=== PATIENT | female | born 1970 | race Caucasian/White ===

== ENCOUNTER → 2018-03-24 | Outpatient (CLI) | payer OTHER ==
[~2018-03-24] VITALS: Ht 162.6 cm; Wt 108.7 kg
[~2018-03-24] MED LIST: ANTIVERT25 MG PO; ATIVAN0.5 MG PO; ATROVENT IH; AZITHROMYCIN 2250 MG; BACTRIM DS TAB1 EACH PO; BENTYL 10 MG CA10 MG PO; BENTYL10 MG PO; CAMILA0.35 MG PO; CARAFATE 11 GM/10 M1 GT; CEPHALEXIN 250250 M1 PO; CLONAZEPAM; CLONAZEPAM 0.50.5 M1 PO; CLONAZEPAM 1 MG1 M1 PO; CLONAZEPAM PO; CYCLAFEM1 EAC1 PO; CYMBALTA; CYMBALTA PO; DEPAKOTE; DEPAKOTE500 MG PO; ERRIN0.35 MG PO; FENTANYL PA25 MCG/HR TP; FENTANYL PA50 MCG/HR TP; FENTANYL PATCH75 MCG TP; FLEXERIL PO; FROVA2.5 MG PO; LEVOTHYROXIN0.075 MG PO; LEVOXYL25 MCG PO; MECLIZINE 25 MG25 M1 PO; METHADONE HCL 110 M1 PO; METHADONE HCL 110 MG PO; METHADONE HCL5 MG PO; METHADONE10 MG/1 M2 PO; MOBIC7.5 MG PO; NEXIUM40 MG PO; NORTREL1 EAC1 PO; OXYCODONE HCL 55 MG PO; OXYCODONE HCL5 M1 PO; PHENERGAN 25 MG25 M1 PO; PROTONIX40 M2 PO; ROXICODONE5 M1 PO; ROXICODONE5 M2 PO; TOPAMAX 100 MG100 MG PO; XOPENEX 0.63 MG/3 M1 IH
--- NOTE | ~2018-03-24 | HPC ---
[facility] [place] [address] PAIN MANAGEMENT CONSULTATION Name: ANYI ANDERSON Room #: REG [facility].#: [id number] Admission: 03/24/18 Attend Phys: Karlo Celaya MD Discharge: Date of : 74 Report #: [id number] THIS REPORT FOR: //name// CC: Vijay Celaya DATE OF SERVICE: 03/24/2018 I have been seeing the patient since we put in a spinal cord stimulator in 2014. She has been one of my most successful stimulator patients. She previously was seen on a regular basis for epidural injections for lumbar radiculopathy, which is nearly gone now with her spinal cord stimulation performed in April. She is here today complaining that she has new pain across her low back. It is worse with prolonged sitting, is actually improved with weightbearing. It does on occasion radiate into her right leg with modest radicular symptoms, but far better than that she had years ago prior to her stimulator. She uses her stimulator with great regularity, charges this appropriately. All medications were reviewed and reconciled. She is on no medication for pain at this time. PHYSICAL EXAMINATION: She is a 47-year-old mentally challenged female, pleasant, but alert and oriented x 3. She is able to move from sitting to standing position, but walks with a spastic gait. Her blood pressure is 120/66, heart rate 123, respirations 16. Her BMI is 41. Examination of the spine reveals pain with forward flexion and extension, both consistent with spondylosis. She has straight leg raising pain, more positive on the right than the left. 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 IMPRESSION: Low back pain with spondylosis. RECOMMENDATIONS: 1. She was instructed to try exercise and she was given exercises to do in the clinic. 2. She was given a prescription for meloxicam 7.5 mg to take once twice a day or 2 tablets in the morning. 3. Follow up in the pain clinic in a couple of weeks. If she is not better, I would recommend an epidural injection at L5-S1. By: [id number] Karlo Celaya MD /nt
[2018-03-24 13:10] VITALS: BP 120/66
== END ==
LOC: PAIN 06:13
DX: M47.26 Other spondylosis with radiculopathy, lumbar region (principal); Z79.899 Other long term (current) drug therapy

== ENCOUNTER → 2018-06-27 | Outpatient (CLI) | payer OTHER ==
[~2018-06-27] VITALS: Ht 162.6 cm; Wt 107.2 kg
--- NOTE | ~2018-06-27 | HPC ---
[facility] [place] [address] PAIN MANAGEMENT CONSULTATION Name: ANYI ANDERSON Room #: REG [facility].#: [id number] Admission: 06/27/18 Attend Phys: Karlo Celaya MD Discharge: Date of : 74 Report #: [id number] THIS REPORT FOR: //name// CC: Vijay Celaya DATE OF SERVICE: 06/27/2018 CHIEF COMPLAINT: Lumbar radiculopathy. HISTORY OF PRESENT ILLNESS: The patient returns to the pain clinic today complaining of severe lumbar radiculopathy. Pain follows an L5-S1 distribution. In the past, she has previously responded extremely well to transforaminal injections. In 2014, we placed a spinal cord stimulator and for the last nearly 2.5 years, she has not required an epidural injection. She has recently flared upper back. She describes her pain as severe, 8/10 and it follows the L5-S1 distribution once again on the right. PQRS: Shows that she has no history of arthritis. She is developmentally delayed. She is 47 years old with a BMI of 40.6. Weight loss has been discussed with the goal of maintaining better health in controlling pain. Her blood pressure is 133/75, heart rate 123 and O2 sat 93. Pain intensity is 8/10. She has not fallen. She is on no blood thinners. She has no history of hypertension and takes no opioids. She denies use of tobacco and alcohol. PHYSICAL EXAMINATION: Further physical exam reveals an antalgic gait with spasticity. Positive straight leg raising on the right following an L5-S1 distribution, decreased sensation. IMPRESSION: 1. Chronic low back pain with radiculopathy and spondylosis. 2. Failure of spinal cord stimulator. PLAN: We are hopeful renewing her radicular epidural injection and we will help reset the benefit from the spinal cord stimulator, single injection was recommended. Potential risks and benefits discussed. PROCEDURE: She was taken to fluoroscopic suite, placed prone, skin prepped with ChloraPrep. Skin anesthetized to the right of midline. A 22-gauge non-coring needle advanced into the epidural space using triplanar fluoroscopic views. There was no blood or CSF aspirated. A milliliter of Omnipaque injected with good spread of dye observed into the epidural space followed by 3 mL of 0.5% [address] [address] PAIN MANAGEMENT CONSULTATION Name: ANYI ANDERSON Jeff Room #: REG [facility] Bernal#: [id number] Admission: 06/27/18 Attend Phys: Karlo Celaya MD Discharge: Date of : 74 Report #: [id number] lidocaine mixed with 80 mg of triamcinolone. He tolerated the procedure well. Pain was 0 at discharge. There were no complications. By: [id number] Karlo Celaya MD /nt
[2018-06-27 12:56] VITALS: BP 133/75
== END | disposition home or self-care (01) ==
LOC: PAIN 07:15
DX: M54.16 Radiculopathy, lumbar region (principal); G89.29 Other chronic pain; M47.816 Spondylosis without myelopathy or radiculopathy, lumbar region; Z98.890 Other specified postprocedural states; Z88.8 Allergy status to other drugs, medicaments and biological substances; Z79.899 Other long term (current) drug therapy

== ENCOUNTER → 2018-07-25 | Outpatient (CLI) | payer OTHER ==
[~2018-07-25] VITALS: Ht 162.6 cm; Wt 107.0 kg
[~2018-07-25] MED LIST changes: +CEFDINIR300 MG PO; +ENDOCET 5-3251 EACH PO
--- NOTE | ~2018-07-25 | HPC ---
[facility] [address] [place] [address] PAIN MANAGEMENT CONSULTATION Name: ANYI ANDERSON Jeff Room #: REG [facility] Bernal#: [id number] Admission: 07/25/18 Attend Phys: Karlo Celaya MD Discharge: Date of : 74 Report #: [id number] THIS REPORT FOR: //name// CC: Vijay Celaya DATE OF SERVICE: 07/25/2018 Followup visit for recurring left L5-S1 radiculopathy. The patient is here today for another transforaminal epidural injection. She had excellent relief after her last injection for 3 weeks, but the pain has returned and is now back to baseline. She has a spinal cord stimulator and I have encouraged her to discuss with [employer] again yet another adjustment. She is having some charging irregularities that were not present several months ago. Her mother says that when she charges it for the first 24-48 hours after charging she has to turn it down. It seems as though it is providing irregular pattern of stimulation and I am concerned that perhaps the batteries are not functioning as they properly should. She did so well with the stimulator after we placed it 3 years ago that I did not even see her at all for pain treatments up until this year. Today, the pain is fairly unbearable. She has an upcoming holiday with family coming down. I have agreed to provide her with another epidural injection. She has had a recent upper respiratory tract infection and began last week on antibiotic. She has been on antibiotics for 4 days and her symptoms have resolved. She is afebrile today. PHYSICAL EXAMINATION: Morbidly obese, pleasant female who has cerebral palsy and spasticity. She moves from sitting to standing position and walks with antalgic features. Her gait is spastic. She has pain across her low back with forward flexion and extension. She has straight leg raising pain identified on the right that follows clearly an L5-S1 distribution. Sensation is intact. There is no swelling in the lower extremities. IMPRESSION: Chronic low back pain with radiculopathy. PLAN: 1. Contact Boxed for reassessment of battery and readjustment. 2. Epidural steroid injection under fluoroscopic guidance, transforaminal approach, L5-S1. PROCEDURE: She was taken to the fluoroscopic suite, placed prone, skin prepped [address] [address] PAIN MANAGEMENT CONSULTATION Name: ANYI ANDERSON Jeff Room #: REG [facility].#: [id number] Admission: 07/25/18 Attend Phys: Karlo Celaya MD Discharge: Date of : 74 Report #: [id number] with ChloraPrep. Skin was anesthetized over the L5-S1 neural foramen. Using triplanar fluoroscopic views, I advanced needle quickly and easily into the epidural space. There was no blood or CSF aspirated. 1 mL of Omnipaque injected demonstrating an excellent epidurogram. It was then followed by 3 mL of 1% lidocaine mixed with 80 mg of triamcinolone. She tolerated the procedure well and was observed in recovery room for a short time. There was some numbness to her leg, but it resolved and she was able to be discharged on her own accord with her family members. Followup visit planned in 2-3 months. By: [id number] Karlo Celaya MD /nt
[2018-07-25 15:04] VITALS: BP 113/78
== END | disposition home or self-care (01) ==
LOC: PAIN 08:25
DX: M54.16 Radiculopathy, lumbar region (principal); G89.29 Other chronic pain; Z98.890 Other specified postprocedural states; Z88.8 Allergy status to other drugs, medicaments and biological substances; Z79.899 Other long term (current) drug therapy

== ENCOUNTER → 2018-11-07 | Outpatient (CLI) | payer OTHER ==
[~2018-11-07] VITALS: Ht 162.6 cm; Wt 108.9 kg
--- NOTE | ~2018-11-07 | HPC ---
[facility] [address] [place] [address] PAIN MANAGEMENT CONSULTATION Name: ANYI ANDERSON Room #: REG [facility] Dharmesh.#: [id number] Admission: 11/07/18 ������������������ Attend Phys: Karlo Celaya MD Discharge: ������������������ Date of : 74 Report #: [id number] THIS REPORT FOR: //name// CC: Bay Celaya DATE OF SERVICE: 11/07/2018 CHIEF COMPLAINT: Followup visit for recurrent right L5-S1 radiculopathy with shooting pain down the posterior lateral aspect of the leg. HISTORY OF PRESENT ILLNESS: The patient is here today in followup requesting a transforaminal epidural injection. We had extended period of time following the placement of her spinal cord stimulator when these injections were not necessary. I had been providing them for her about every 3 months for a number of years until the stimulator changed all of that. I am disappointed to say that she is no longer receiving the same benefit that she had earlier from her stimulator despite some readjustments. I performed a transforaminal for her last in July and this will be her third injection since 06/27/2018. Prior to that time, her last transforaminal injection was 2014, so it was in fact about 3-1/2 years of good relief from the spinal cord stimulator. 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 Her mother helps her toggle between the programs. She has been using some meloxicam to help with arthritis of the hands, but no other oral pain medications have been provided. PQRS review shows a 47-year-old developmentally delayed female without history of osteoarthritis, morbid obesity with a BMI of 41.2 and pain intensity of 8/10. She has some instability in her gait, but has not fallen within the last months and is not considered a fall risk. She is on no blood thinners and is not treated for hypertension. She does not use opioid medication, but has completed an opioid risk tool and is considered at low risk. PHYSICAL EXAMINATION: GENERAL: She is pleasant, provides a thorough history. VITAL SIGNS: Her blood pressure 104/83, heart rate is 133 with respirations of 22, O2 sat 97%. These are not atypical numbers for her with a history of chronic tachycardia. She is 5 feet 4 inches, 240 pounds, BMI of 41.2. MUSCULOSKELETAL: She moves and stands independently, but walks with a spastic [facility] [address] [place] [address] PAIN MANAGEMENT CONSULTATION Name: ANYI ANDERSON Room #: REG [facility].#: [id number] Admission: 11/07/18 ������������������ Attend Phys: Karlo Celaya MD Discharge: ������������������ Date of : 74 Report #: [id number] gait. She has pain across her low back and limited range of motion in flexion, extension and rotation. She has positive straight leg raising, reproduces pain down the L5 distribution into the right leg. IMPRESSION: 1. Lumbar radiculopathy, chronic and recurrent. 2. Failure of spinal cord stimulation therapy. 3. Hypothyroidism. 4. History of chronic depression and anxiety. 5. Cerebral palsy with dystonia hemiparesis. PROCEDURE PERFORMED: Right L5-S1 transforaminal epidural injection. PROCEDURE: The patient was taken to fluoroscopic suite for procedure. After informed consent, placed prone, skin prepped with ChloraPrep. Skin was anesthetized over the L5-S1 neural foramen. Using triplanar fluoroscopic views, I advanced the needle into the neural foramen. One mL of Omnipaque was injected. Good spread of dye observed in the epidural space followed by 3 mL of 0.5% lidocaine mixed with 80 mg of triamcinolone. She tolerated the procedure well and was observed for 45 minutes and then discharged. Pain was reduced by about 50%. She tolerated the procedure well. There were no complications. ��������������������������������������������� ���������������������������������������� By: ��������������������������������������������� [id number] Karlo Celaya MD /nt
[2018-11-07 14:10] VITALS: BP 104/83
--- NOTE | 2018-11-07 14:19 | NUR ---
Pain Clinic Assessment: 1. History of Osteoarthritis: Not Applicable History of Rheumatoid Arthritis: Not Applicable 2. Height: 5 ft. 4 in. 162.6 cm. Weight: 240.0 lb. oz. 108.864 kg. Patient's BMI: 41.2 3. Vital Signs: BP: 104/83 Pulse: 133 Resp: 22 Temp: 02 Sat: 97 ECG Mon: 4. Pain Intensity: 8 5. Fall Risk: Dizziness: Y Needs help standing or walking: Y Fallen in the last 3 months: N Fall risk comments: 6. Patient on Blood Thinner: None 7. History of Hypertension: N 8. Opioid Therapy greater than 6 weeks: N Opiate Contract Signed: 9. Risk Assessment Tool Provided: low-1 10. Functional Assessment Tool: 64/70 11. Recreational Drug Use: Never Drug Type: Tobacco Use: Never Smoker Tobacco Type: Amount or Packs/day: How Many Years: Alcohol Use: No Frequency: Quant:
== END | disposition home or self-care (01) ==
LOC: PAIN 10-14 07:15
DX: M54.16 Radiculopathy, lumbar region (principal); G89.29 Other chronic pain; G81.90 Hemiplegia, unspecified affecting unspecified side; E03.9 Hypothyroidism, unspecified; E66.01 Morbid (severe) obesity due to excess calories; Z98.890 Other specified postprocedural states; Z86.59 Personal history of other mental and behavioral disorders; Z68.41 Body mass index [BMI] 40.0-44.9, adult; Z88.6 Allergy status to analgesic agent; Z79.899 Other long term (current) drug therapy

== ENCOUNTER → 2018-12-19 | Outpatient (CLI) | payer OTHER ==
[~2018-12-19] VITALS: Ht 162.6 cm; Wt 109.3 kg
--- NOTE | ~2018-12-19 | HPC ---
[facility] [address] [place] [address] PAIN MANAGEMENT CONSULTATION Name: ANYI ANDERSON Room #: REG [facility] Dharmesh.#: [id number] Admission: 12/19/18 ������������������ Attend Phys: Karlo Celaya MD Discharge: ������������������ Date of : 74 Report #: [id number] THIS REPORT FOR: //name// CC: Vijay Celaya DATE OF SERVICE: 12/19/2018 Followup visit for right L5-S1 lumbar radiculopathy. The patient returns to Pain Clinic today for a transforaminal epidural injection. This will be her third injection in 5 months. We discussed the role of the injection in providing pain relief. We did this for a number of years until she had her spinal cord stimulator placed. After that, she did very well and I did not see her for about 2 years. She is now no longer getting relief and we have had her scheduled on 2 occasions to work with [employer] to try and recapture. I am going to ask that they return once again to the clinic and see if they can make additional stimulation adjustments. Today, she reports that her pain is 10/10. She would like to go forward with another epidural injection. PHYSICAL EXAMINATION: She is 5 feet 4 inches, 241 pounds, BMI is 41.3, blood pressure 154/120, heart rate 130. We believe this is related to her pain. That was born out with a reduction in her blood pressure and her heart rate in recovery room after her injection when the pain was much improved. She was able to move from an independent standing position and ambulate with a spastic gait. She has chronic mobility issues related to her cerebral palsy with dystonia and hemiparesis. She has pain across her low back, pain with forward flexion and extension, positive straight leg raising on the right and follows an L5-S1 distribution. IMPRESSION: 1. Chronic low back pain with radiculopathy, L5-S1. 2. Failure of spinal cord stimulation therapy. We will continue to maybe see if we can get that recapture some of the pain relief that was so beneficial early on. 3. Hypothyroidism. 4. Chronic depression and anxiety. 5. Cerebral palsy with dystonia and hemiparesis. PROCEDURE: Right L5-S1 transforaminal epidural injection under fluoroscopic guidance. PROCEDURE: She was taken to fluoroscopic suite. [place] [address] PAIN MANAGEMENT CONSULTATION Name: ANYI ANDERSON Jeff Room #: REG [facility] Bernal#: [id number] Admission: 12/19/18 ������������������ Attend Phys: Karlo Celaya MD Discharge: ������������������ Date of : 74 Report #: [id number] prepped with ChloraPrep. Skin anesthetized over the L5-S1 neural foramen. Using triplanar fluoroscopic views, I advanced the needle on the first attempt in the epidural space. 1 mL of Omnipaque was injected and good spread of dye was seen within the epidural space. This was followed then by 3 mL of 0.5% lidocaine mixed with 80 mg of triamcinolone. She tolerated the procedure well. Pain was 0 on discharge. Follow up as needed. ��������������������������������������������� ���������������������������������������� By: ��������������������������������������������� [id number] Karlo Celaya MD /nt
[2018-12-19 12:38] VITALS: BP 154/120
--- NOTE | 2018-12-19 12:39 | NUR ---
Pain Clinic Assessment: 1. History of Osteoarthritis: Not Applicable History of Rheumatoid Arthritis: Not Applicable 2. Height: 5 ft. 4 in. 162.6 cm. Weight: 241.0 lb. oz. 109.317 kg. Patient's BMI: 41.3 3. Vital Signs: BP: 154/120 Pulse: 130 Resp: 18 Temp: 02 Sat: 95 ECG Mon: 4. Pain Intensity: 8 5. Fall Risk: Dizziness: N Needs help standing or walking: N Fallen in the last 3 months: N Fall risk comments: 6. Patient on Blood Thinner: None 7. History of Hypertension: N 8. Opioid Therapy greater than 6 weeks: N Opiate Contract Signed: 9. Risk Assessment Tool Provided: low-1 10. Functional Assessment Tool: 64/70 11. Recreational Drug Use: Never Drug Type: Tobacco Use: Never Smoker Tobacco Type: Amount or Packs/day: How Many Years: Alcohol Use: No Frequency: Quant:
== END | disposition home or self-care (01) ==
LOC: PAIN 10-21 07:02
DX: M54.16 Radiculopathy, lumbar region (principal); G89.29 Other chronic pain; M54.5 Low back pain; Z98.890 Other specified postprocedural states; E03.9 Hypothyroidism, unspecified; F32.9 Major depressive disorder, single episode, unspecified; F41.9 Anxiety disorder, unspecified; G81.90 Hemiplegia, unspecified affecting unspecified side

== ENCOUNTER → 2019-05-01 | Outpatient (CLI) | payer OTHER ==
[~2019-05-01] VITALS: Ht 162.6 cm; Wt 106.1 kg
[~2019-05-01] MED LIST changes: +LOSARTAN POTASS50 MG PO
--- NOTE | ~2019-05-01 | HPC ---
[facility] [address] [employer] [place] [address] PAIN MANAGEMENT CONSULTATION Name: ANYI ANDERSON Room #: REG [facility] Dolores#: [id number] Admission: 05/01/19 Attend Phys: Karlo Celaya MD Discharge: Date of : 74 Report #: [id number] THIS REPORT FOR: //name// CC: Vijay Celaya DATE OF SERVICE: 05/01/2019 Followup visit for recurrent lumbar radiculopathy, L5-S1 distribution. The patient returns to pain clinic today for right L5-S1 transforaminal epidural injection. She has done beautifully with these injections off and on over the course of several years. The duration of response usually is measured in months. There was a nice interval where the spinal cord stimulator that was placed worked very effectively, but we only saw a response for about 2 years. The stimulator is no longer effective. We had her work with [employer] a number of occasions. She tried to get working once again. She is here today scoring her pain is a 10/10. I would like to go forward with another transforaminal epidural injection on the right. PQRS REVIEW: 1. She denies a history of osteoarthritis. Her pain is primarily neuropathic and into the right leg. 2. BMI is 40.1. 3. Vital signs 106/83, heart rate 114, respirations 16, O2 96. 4. Pain intensity is 9-10/10. 5. She needs help standing and walking, but has not fallen in the last 3 months. I would consider her a fall risk, nonetheless. 6. No blood thinning medications. 7. No history of hypertension or treatment. 8. No opioids at this time. She has not completed an opioid agreement. 9. Low risk is considered by the opioid risk tool that we utilized. 10. Functional assessment score is high at 64/70 which indicates poor daily functioning due to pain. 11. She denies use of tobacco and alcohol. PHYSICAL EXAMINATION: GENERAL: She is a pleasant 48-year-old with a history of cerebral palsy, right hemiplegia due to dystonia. She is a somewhat anxious and nervous regarding procedure as usual. She moves from sitting to standing position independently, walks with markedly hemiplegic dystonic gait. Spasticity is noted on the right. CHEST: Clear. CARDIAC: Rhythm is regular. [address] [address] PAIN MANAGEMENT CONSULTATION Name: ANYI ANDERSON Jeff Room #: REG [facility].#: [id number] Admission: 05/01/19 Attend Phys: Karlo Celaya MD Discharge: Date of : 74 Report #: [id number] ABDOMEN: Soft, no organomegaly. MUSCULOSKELETAL: Examination of the spine reveals tenderness and a marked positive straight leg raising on the right, reproducing pain in the L5-S1 distribution of the right all the way to the foot. She has weakness or guarding and plantar and dorsiflexion was not performed, I believe more due to pain than to weakness. IMPRESSION: 1. Cerebral palsy with dystonia and hemiparesis. 2. Lumbar radiculopathy, L5-S1 on the right. 3. Hypothyroidism. 4. History of chronic anxiety and depression. RECOMMENDATION: Right L5-S1 transforaminal injection under fluoroscopic guidance. PROCEDURE: After informed consent, she was taken to fluoroscopic suite, placed prone, skin prepped with ChloraPrep. Skin anesthetized over the L5-S1 neural foramen. Using triplanar fluoroscopic views, I advanced the needle into the neural foramen. Definitely, the needle looked excellent. A 0.25 mL of Omnipaque was injected, followed by another 2 mL of Omnipaque. I could not see dye in the AP view. The lateral view indicated that the dye was in the epidural space, but extending in a cephalad direction. It is likely that the depth of the needle was a bit too far, so I withdrew the needle slightly and repositioned in the neural foramen. Repeat epidurogram with 1 mL of Omnipaque demonstrated spread within the dye and into the epidural space. It was then followed by 3 mL of 0.5% lidocaine mixed with 8 mg of Decadron. She tolerated the procedure well. There were no complications. She was observed in recovery room for 45 minutes and discharged. Followup visit is planned on an as needed basis for repeat injections. By: [id number] Karlo Celaya MD /nt
[2019-05-01 14:58] VITALS: BP 106/83
--- NOTE | 2019-05-01 15:13 | NUR ---
Pain Clinic Assessment: 1. History of Osteoarthritis: Not Applicable History of Rheumatoid Arthritis: Not Applicable 2. Height: 5 ft. 4 in. 162.6 cm. Weight: 233.8 lb. oz. 106.051 kg. Patient's BMI: 40.1 3. Vital Signs: BP: 106/83 Pulse: 114 Resp: 16 Temp: 02 Sat: 96 ECG Mon: 4. Pain Intensity: 9.8 5. Fall Risk: Dizziness: Y Needs help standing or walking: Y Fallen in the last 3 months: N Fall risk comments: 6. Patient on Blood Thinner: None 7. History of Hypertension: N 8. Opioid Therapy greater than 6 weeks: N Opiate Contract Signed: 9. Risk Assessment Tool Provided: low-1 10. Functional Assessment Tool: 64/70 11. Recreational Drug Use: Never Drug Type: Tobacco Use: Never Smoker Tobacco Type: Amount or Packs/day: How Many Years: Alcohol Use: No Frequency: Quant:
== END | disposition home or self-care (01) ==
LOC: PAIN 06:56
DX: M54.16 Radiculopathy, lumbar region (principal); G89.29 Other chronic pain; G80.3 Athetoid cerebral palsy; E03.9 Hypothyroidism, unspecified; Z86.59 Personal history of other mental and behavioral disorders; Z88.8 Allergy status to other drugs, medicaments and biological substances; Z79.899 Other long term (current) drug therapy; Z98.890 Other specified postprocedural states

== ENCOUNTER → 2019-05-18 | Outpatient (CLI) | payer OTHER ==
[~2019-05-18] VITALS: Ht 162.6 cm; Wt 107.4 kg
[~2019-05-18] MED LIST changes: +NORCO 5-325 TA1 EAC1 PO
--- NOTE | ~2019-05-18 | HPC ---
[facility] [place] [address] PAIN MANAGEMENT CONSULTATION Name: ANYI ANDERSON Room #: REG [facility].#: [id number] Admission: 05/18/19 ������������������ Attend Phys: Karlo Celaya MD Discharge: ������������������ Date of : 74 Report #: [id number] THIS REPORT FOR: //name// CC: ARPAN Celaya DATE OF SERVICE: 05/18/2019 Followup visit for lumbar radiculopathy, right L5-S1 distribution. The patient returns to pain clinic today and reports that she did not get good relief from her epidural. This is not typical. The transforaminal injection has been helpful in almost every occasion. I reviewed her x-rays. Needle placement looks good. She feels that the medication went up, not down. It is hard to tell from the films given her obesity, but I can definitely see an epidurogram. It is possible that she might have had some extension through the subdural, but not subarachnoid space and perhaps medicine did not stay in the foramen. Another consideration would be her transition from triamcinolone to Decadron as it is recommended by other physicians to avoid particulate steroids. We have used triamcinolone for years without complication. This is the first time I have altered that recipe and used dexamethasone 10 mg. PHYSICAL EXAMINATION: GENERAL: She is somewhat anxious, typical of her. VITAL SIGNS: Blood pressure 138/85, heart rate is 85. MUSCULOSKELETAL: She moves from sitting to standing position and ambulates with an antalgic gait. She has cerebral palsy with dystonia and hemiparesis. Straight leg raising is markedly positive on the right following an L5-S1 distribution. IMPRESSION: 1. Cerebral palsy with dystonia and hemiparesis. 2. Lumbar radiculopathy, L5-S1. 3. Hypothyroidism. 4. Chronic anxiety and depression. RECOMMENDATIONS: I have told her we will wait 1-2 weeks and see if there is any change in her condition, then repeat the epidural injection. I will repeat it [facility] [address] [place] [address] PAIN MANAGEMENT CONSULTATION Name: ANYI ANDERSON Room #: REG [facility].#: [id number] Admission: 05/18/19 ������������������ Attend Phys: Karlo Celaya MD Discharge: ������������������ Date of : 74 Report #: [id number] as we have in the past with triamcinolone without changes to previous treatment to see if that makes a difference. Followup visit is planned in 2 weeks. ��������������������������������������������� ���������������������������������������� By: ��������������������������������������������� 1723 0219 Karlo Celaya MD /nt
[2019-05-18 14:19] VITALS: BP 154/65
--- NOTE | 2019-05-18 14:28 | NUR ---
Pain Clinic Assessment: 1. History of Osteoarthritis: Not Applicable History of Rheumatoid Arthritis: Not Applicable 2. Height: 5 ft. 4 in. 162.6 cm. Weight: 236.8 lb. oz. 107.412 kg. Patient's BMI: 40.6 3. Vital Signs: BP: 154/65 Pulse: 111 Resp: 18 Temp: 02 Sat: 98 ECG Mon: 4. Pain Intensity: 9.5 5. Fall Risk: Dizziness: N Needs help standing or walking: N Fallen in the last 3 months: N Fall risk comments: 6. Patient on Blood Thinner: None 7. History of Hypertension: N 8. Opioid Therapy greater than 6 weeks: N Opiate Contract Signed: 9. Risk Assessment Tool Provided: low-1 10. Functional Assessment Tool: 64/70 11. Recreational Drug Use: Never Drug Type: Tobacco Use: Never Smoker Tobacco Type: Amount or Packs/day: How Many Years: Alcohol Use: No Frequency: Quant:
== END ==
LOC: PAIN 06:55
DX: M54.16 Radiculopathy, lumbar region (principal); E03.9 Hypothyroidism, unspecified; F32.9 Major depressive disorder, single episode, unspecified; F41.9 Anxiety disorder, unspecified; G80.9 Cerebral palsy, unspecified

== ENCOUNTER → 2019-05-29 | Outpatient (CLI) | payer OTHER ==
[~2019-05-29] VITALS: Ht 162.6 cm; Wt 106.1 kg
[~2019-05-29] MED LIST changes: +MILK THISTLE175 M4 PO
--- NOTE | ~2019-05-29 | HPC ---
[facility] [place] [address] PAIN MANAGEMENT CONSULTATION Name: ANYI ANDERSON Room #: REG [facility] ChaparroAziza.#: [id number] Admission: 05/29/19 ������������������ Attend Phys: Karlo Celaya MD Discharge: ������������������ Date of : 74 Report #: [id number] THIS REPORT FOR: //name// CC: Vijay Celaya DATE OF SERVICE: 05/29/2019 Followup visit for right L5 radiculopathy. The patient returns today for another right transforaminal epidural injection. I saw her in repeat consultation on 05/18/2019. She felt that the injection performed at her previous visit with dexamethasone was not as helpful. I also had reviewed films and it looks as though that there was some additional extension of the transforaminal medication into the possible subdural, but not subarachnoid space. I have agreed to repeat the injection today given the fact that her pain score is a 9.8/10, sharp, stabbing, shooting, burning, and she has found no other measures to provide relief. Her use of spinal cord stimulation is otherwise well documented throughout this record. PHYSICAL EXAMINATION: GENERAL: She is pleasant, but uncomfortable. VITAL SIGNS: Blood pressure is 110/61, heart rate 123, respirations 16, O2 sat 96, BMI of 40.1. MUSCULOSKELETAL: Her gait is spastic. She has pain across her low back. She has positive straight leg raising on the right that follows clearly an L5 distribution into the ankle and foot. Sensation is diminished. IMPRESSION: 1. Cerebral palsy with dystonia and hemiparesis. 2. Right L5 radiculopathy. 3. Hypothyroidism. 4. Chronic depression and anxiety. PROCEDURE: Lumbar epidural injection using a transforaminal approach at L5-S1. DESCRIPTION OF PROCEDURE: After informed consent, she was taken to fluoroscopic suite, placed prone, skin prepped with ChloraPrep. Skin anesthetized over the L5-S1 neuroforamen. A 20-gauge 6-inch Chiba needle was advanced into the neuroforamen on the first attempt without difficulty. There was no paresthesia. A 0.25 mL of Omnipaque was injected to demonstrate an excellent epidurogram. It was then followed by 3 mL of 0.5% lidocaine mixed with 80 mg of triamcinolone. I reverted back to the previous medication, which has been so helpful. She tolerated the procedure well. There were no complications. Pain score was 0 in recovery room and she felt much better now than she had after her last injection. [address] [address] PAIN MANAGEMENT CONSULTATION Name: ANYI ANDERSON Room #: REG [facility]#: [id number] Admission: 05/29/19 ������������������ Attend Phys: Karlo Celaya MD Discharge: ������������������ Date of : 74 Report #: [id number] Followup visit planned as needed. ��������������������������������������������� ���������������������������������������� By: ��������������������������������������������� 1626 0132 Karlo Celaya MD /abhishek
[2019-05-29 12:51] VITALS: BP 110/61
--- NOTE | 2019-05-29 13:02 | NUR ---
Pain Clinic Assessment: 1. History of Osteoarthritis: B/L HANDS NECK History of Rheumatoid Arthritis: Not Applicable 2. Height: 5 ft. 4 in. 162.6 cm. Weight: 234.0 lb. oz. 106.142 kg. Patient's BMI: 40.1 3. Vital Signs: BP: 110/61 Pulse: 123 Resp: 16 Temp: 02 Sat: 6 ECG Mon: 4. Pain Intensity: 9.8 5. Fall Risk: Dizziness: Y Needs help standing or walking: N Fallen in the last 3 months: N Fall risk comments: 6. Patient on Blood Thinner: None 7. History of Hypertension: Y 8. Opioid Therapy greater than 6 weeks: N Opiate Contract Signed: 9. Risk Assessment Tool Provided: low-1 10. Functional Assessment Tool: 11. Recreational Drug Use: Never Drug Type: Tobacco Use: Never Smoker Tobacco Type: Amount or Packs/day: How Many Years: Alcohol Use: No Frequency: Quant:
== END | disposition home or self-care (01) ==
LOC: PAIN 06:55
DX: M54.16 Radiculopathy, lumbar region (principal); E03.9 Hypothyroidism, unspecified; F41.9 Anxiety disorder, unspecified; F32.9 Major depressive disorder, single episode, unspecified; G81.90 Hemiplegia, unspecified affecting unspecified side; Z88.8 Allergy status to other drugs, medicaments and biological substances; Z79.899 Other long term (current) drug therapy

== ENCOUNTER → 2019-10-12 | Outpatient (CLI) | payer OTHER ==
[~2019-10-12] VITALS: Ht 162.6 cm; Wt 108.1 kg
[~2019-10-12] MED LIST changes: -CYMBALTA PO; +CYMBALTA20 MG PO; +HYDROCODONE-AP1 EA11 PO
--- NOTE | ~2019-10-12 | HPC ---
[facility] [place] [address] PAIN MANAGEMENT CONSULTATION Name: ANYI ANDERSON Room #: REG [facility].#: [id number] Admission: 10/12/19 Attend Phys: Karlo Celaya MD Discharge: Date of : 74 Report #: [id number] THIS REPORT FOR: cc: Vijay Cervantes MD, Rene P. MD Morgan, Richard L. MD ~ THIS REPORT FOR: //name// CC: Vijay Celaya DATE OF SERVICE: 10/12/2019 Followup visit for lumbar radiculopathy, chronic and recurrent. The patient returns to pain clinic today in the severe pain. She is here today with her mother. Her pain is 9.5 and it follows clearly an L5 distribution on the right. She has had a spinal cord stimulator for a number of years. We were thrilled when it worked so well for the first few years, but it is no longer working. We will once again try to get [employer] back to see if they can reprogram it better for her. They have had trouble getting a hold of [employer]. PQRS REVIEW: PQRS is positive for osteoarthritis of the hands and neck. Her weight is elevated with a BMI at 40.9. Blood pressure 103/78, heart rate 122/20 with a respiration of 22 and an O2 sat at 97 and pain intensity of 9.5. She is not a fall risk. She is on no blood thinners and she has a history of hypertension, which is under treatment by Dr. Cervantes. Medications on the electronic medical record include the hydrocodone, cyclobenzaprine, losartan, meclizine, promethazine, control, levothyroxine, clonazepam, Frova, Cymbalta, Topamax, and pantoprazole. She denies the use of tobacco or alcohol. Risk assessment tool for addiction is low at 1. She has not signed an opioid agreement with our clinic. PHYSICAL EXAMINATION: GENERAL: She is pleasant and has notable spasticity in her gait. She has pain across her low back. She has pain with a straight leg raising on the right and reproduces pain all the way to the right foot along the L5 distribution. Sensation is diminished also along the outside of her calf. She has generalized weakness. IMPRESSION: Lumbar radiculopathy, [place] [address] PAIN MANAGEMENT CONSULTATION Name: ANYI ANDERSON Room #: REG [facility]#: [id number] Admission: 10/12/19 Attend Phys: Karlo Celaya MD Discharge: Date of : 74 Report #: [id number] PROCEDURE: Right transforaminal epidural injection under fluoroscopic guidance. DESCRIPTION OF PROCEDURE: After informed consent, she was taken to fluoroscopic suite for a treatment. She was placed prone and the skin was prepped with ChloraPrep. Skin was anesthetized over the L5-S1 interspace and using triplanar fluoroscopic views, I advanced the needle into the neural foramen. There was no difficulty. A 1 mL of Omnipaque was adequate to perform an excellent epidurogram and it was followed by 3 mL of 0.5% lidocaine mixed with 80 mg of triamcinolone. She tolerated the procedure well and was observed for 45 minutes and discharged. Pain was reduced by half. By: [id number] Karlo Celaya MD /nt
[2019-10-12 14:52] VITALS: BP 103/76
--- NOTE | 2019-10-12 15:16 | NUR ---
Pain Clinic Assessment: 1. History of Osteoarthritis: B/L HANDS NECK History of Rheumatoid Arthritis: Not Applicable 2. Height: 5 ft. 4 in. 162.6 cm. Weight: 238.4 lb. oz. 108.138 kg. Patient's BMI: 40.9 3. Vital Signs: BP: 103/76 Pulse: 122 Resp: 22 Temp: 02 Sat: 97 ECG Mon: 4. Pain Intensity: 9.5 5. Fall Risk: Dizziness: N Needs help standing or walking: Y Fallen in the last 3 months: N Fall risk comments: 6. Patient on Blood Thinner: None 7. History of Hypertension: Y 8. Opioid Therapy greater than 6 weeks: N Opiate Contract Signed: 9. Risk Assessment Tool Provided: low-1 10. Functional Assessment Tool: 11. Recreational Drug Use: Never Drug Type: Tobacco Use: Never Smoker Tobacco Type: Amount or Packs/day: How Many Years: Alcohol Use: No Frequency: Quant:
== END | disposition home or self-care (01) ==
LOC: PAIN 08-21 07:38
DX: M54.16 Radiculopathy, lumbar region (principal); G89.29 Other chronic pain; I10 Essential (primary) hypertension; Z88.6 Allergy status to analgesic agent; M19.90 Unspecified osteoarthritis, unspecified site; Z98.890 Other specified postprocedural states; Z79.899 Other long term (current) drug therapy; Z88.8 Allergy status to other drugs, medicaments and biological substances

== ENCOUNTER → 2019-11-09 | Outpatient (CLI) | payer OTHER ==
[~2019-11-09] VITALS: Ht 162.6 cm; Wt 106.9 kg
[~2019-11-09] MED LIST changes: +OXYCODONE-ACET1 EACH PO
--- NOTE | ~2019-11-09 | HPC ---
[facility] [place] [address] PAIN MANAGEMENT CONSULTATION Name: ANYI ANDERSON Room #: REG [facility].#: [id number] Admission: 11/09/19 Attend Phys: Karlo Celaya MD Discharge: Date of : 74 Report #: [id number] THIS REPORT FOR: cc: Vijay Cervantes MD, Rene P. MD Morgan,Karlo Ashley MD ~ CC: Vijay Celaya DATE OF SERVICE: 11/09/2019 Followup visit for recurring and persistent right lumbar radiculopathy. The patient returns to pain clinic today for a second epidural injection in this series. She had an injection 1 month ago, which helped initially, but the pain returned fairly quickly to the same level. In the past, she has had much longer response. She reports that her pain score again today is much higher than normal. She scores her pain as 9+. It follows an L5 distribution, although there is still some in L4 today. She has pain with walking and standing. Pain is also present in the sitting position. PQRS is unchanged from 10/12/2019. Osteoarthritis hands and neck as well as lumbar spondylosis. BMI 40.4. Slight decrease. Blood pressure 114/61, heart rate 125, respirations 20, O2 sat is 97, pain intensity 9.5. Dizziness is noted. Pain with standing and walking. She has not fallen in the last 3 months. She denies use of blood thinners, but is treated for hypertension by Dr. Cervantes. All medications reviewed and reconciled from the electronic medical record. She denies use of tobacco and alcohol. She has an ORT score of 1. I did agree to initiate a bit stronger opioid and it is called an oxycodone 5/325, #30 tablets that is an MME of 7.5. PHYSICAL EXAMINATION: As noted. She has a notable spasticity to her gait. Positive straight leg raising reproduces pain all the way to the foot along the L5 distribution, although there is some more in her medial foot consistent with an L4 distribution. Sensation is diminished also along the outer part of her calf as before. Bilateral lower extremity weakness. IMPRESSION: Lumbar radiculopathy, L4-L5 distribution. PROCEDURE: Right L4-L5 transforaminal epidural injection under fluoroscopic guidance. DESCRIPTION OF PROCEDURE: After informed consent, she was taken to fluoroscopic suite, placed prone, skin prepped with ChloraPrep. [place] [address] PAIN MANAGEMENT CONSULTATION Name: ANYI ANDERSON Room #: REG [facility]#: [id number] Admission: 11/09/19 Attend Phys: Karlo Celaya MD Discharge: Date of : 74 Report #: [id number] the L4-L5 neural foramen. Using triplanar fluoroscopic views, I advanced the needle into the neural foramen and an excellent epidurogram was achieved with 0.5 mL of Omnipaque. It was then followed by 3 mL of 1% lidocaine mixed with 80 mg of triamcinolone. She tolerated the procedure well and was observed for 45 minutes and taken in recovery room and discharged in good condition. There were no complications. By: [id number] Karlo Celaya MD /nt
[2019-11-09 13:49] VITALS: BP 114/61
--- NOTE | 2019-11-09 13:59 | NUR ---
Pain Clinic Assessment: 1. History of Osteoarthritis: B/L HANDS NECK History of Rheumatoid Arthritis: Not Applicable 2. Height: 5 ft. 4 in. 162.6 cm. Weight: 235.6 lb. oz. 106.868 kg. Patient's BMI: 40.4 3. Vital Signs: BP: 114/61 Pulse: 125 Resp: 20 Temp: 02 Sat: 97 ECG Mon: 4. Pain Intensity: 9.5 5. Fall Risk: Dizziness: Y Needs help standing or walking: N Fallen in the last 3 months: N Fall risk comments: 6. Patient on Blood Thinner: None 7. History of Hypertension: Y 8. Opioid Therapy greater than 6 weeks: N Opiate Contract Signed: 9. Risk Assessment Tool Provided: low-1 10. Functional Assessment Tool: 11. Recreational Drug Use: Never Drug Type: Tobacco Use: Never Smoker Tobacco Type: Amount or Packs/day: How Many Years: Alcohol Use: No Frequency: Quant:
== END | disposition home or self-care (01) ==
LOC: PAIN 06:47
DX: M54.16 Radiculopathy, lumbar region (principal); G89.29 Other chronic pain; I10 Essential (primary) hypertension; M19.90 Unspecified osteoarthritis, unspecified site; Z98.890 Other specified postprocedural states; Z79.899 Other long term (current) drug therapy; Z88.8 Allergy status to other drugs, medicaments and biological substances

== ENCOUNTER → 2020-01-23 | Outpatient (CLI) | payer OTHER ==
[~2020-01-23] MED LIST changes: +CYMBALTA60 MG PO
--- NOTE | 2020-01-24 09:07 | HPC ---
[facility] [address] [address] PAIN MANAGEMENT CONSULTATION Name: ANYI ANDERSON Room #: REG [facility] Dolores#: [id number] Admission: 01/23/20 Attend Phys: Jessica Bradford Discharge: Date of : 74 Report #: [id number] THIS REPORT FOR: cc: Vijay Cervantes MD, Rene P. MD Hocker, Amanda CNS ~ CC: Karlo Celaya MD DATE OF SERVICE: 01/23/2020 This is a telemedicine phone visit on this patient from 1:35-1:55 during the COVID virus that the patient has agreed upon. CHIEF COMPLAINT: Recurrent right lumbar radiculopathy. HISTORY OF PRESENT ILLNESS: This is a 49-year-old female who has a longstanding history of chronic low back pain that radiates into her right leg, right sacroiliac area. The patient reports that her pain score today is an 8.5. She states that it is a sharp fire feeling, especially when she walks and sits for prolonged periods of time in her right leg, especially. She does use her spinal cord stimulator at all times. She feels that lying on the couch flat on her back is the best position for her. She does take a hydrocodone 1 tablet a day at bedtime and finds this beneficial. She is trying to reach [email or web address] to see if they will come and adjust her spinal cord stimulator, though during the COVID outbreak, they have not been seeing patients, so she is unsure if she will get them to adjust it. Today, she is speaking with me over the telephone for her telemedicine appointment for a refill of her hydrocodone. ALLERGIES: CODEINE, ADHESIVE AND STRAWBERRIES. CURRENT LIST OF MEDICATIONS: Hydrocodone 7.5/325 at bedtime, milk thistle, Flexeril, losartan, Cyclafem, Katie, Synthroid, clonazepam, Frova, Cymbalta, Topamax, Protonix and Depakote. PQRS: 1. She has osteoarthritis in her hands and neck as well as lumbar spondylosis. She denies any rheumatoid arthritis. We did not do a height, weight and vital signs. These were deferred due to a telemedicine appointment. Pain score is 8.5. Fall risk: Complains of dizziness, does not need help walking or standing, but she is a fall risk. 2. Blood thinners, she denies. She is on medicine for hypertension. Her opioid therapy is greater than 6 weeks. Risk assessment tool is low. Functional assessment is 27/70. 3. Recreational drug use, she denies. She is not a smoker[place] [address] PAIN MANAGEMENT CONSULTATION Name: ANDERSONANYI CASTRO Room #: REG [facility] Bernal#: [id number] Admission: 01/23/20 Attend Phys: Jessica Bradford Discharge: Date of : 74 Report #: [id number] According to the prescription monitoring system, the patient most recently filled her medications in appropriate fashion. She is not filling other medications of opioids from any other physicians though she does take a clonazepam along with her 1 opioid a day and has been tolerating this without difficulty. Her morphine mEq per day is 7.5 MMEs. PHYSICAL EXAMINATION: GENERAL: This is a review of systems. She is alert and orientated. The patient is answering my questions appropriately on this telemedicine appointment placing her current pain score at 8.5. MUSCULOSKELETAL: She states that has pain that is sharp fire burning in her lower back radiating down her right leg into her SI area in her normal distribution of the L4-L5 distribution. IMPRESSION: 1. Lumbar radiculopathy at the L4-L5 distribution. 2. Spinal cord stimulator placement. 3. Cerebral palsy with dystonia and hemiparesis. 4. Hypothyroidism. 5. Chronic depression and anxiety. 6. Complex medical management under terms of written opioid agreement. We reviewed the fact that opiate medications are being used to provide analgesia adequate to support activities of daily living, not attempting to achieve a specific pain score on the 0-10 Visual Analog Scale. The current opiate medications are providing sufficient analgesia to allow the patient to participate in activities of daily living. The patient is not exhibiting any aberrant behavior suggestive of drug diversion. The patient is not having any adverse reactions to medications. The patient is not suffering from daytime somnolence or mental acuity changes. The patient is managing opiate-induced constipation with appropriate [id number] agents and dietary considerations. The patient was counseled on concern for caution with operating a motor vehicle while using opiate medications. PLAN: 1. We discussed treatment options with the patient today. The patient finds her hydrocodone 1 tablet at bedtime beneficial in allowing her to sleep at night. She would like a refill of this medication. She reports she has 4 pills left, and due to the coronavirus stay at home orders, she does not feel comfortable going out. She also has a father that is very sick at home and they do not want to bring the virus home to him, so she has been staying at home with her mother and father. Scripts sent electronically by Dr. Karlo Celaya for hydrocodone 7.5, #60, with no additional fills. 2. The patient states that the last injection of the right transforaminal in early November help afforded her 75% relief. It helped for at least 1 month. She reports during that time she was able to be more active, but still continues to [facility] [address] [place] [address] PAIN MANAGEMENT CONSULTATION Name: ANYI ANDERSON Room #: REG [facility] Dharmesh.#: [id number] Admission: 01/23/20 Attend Phys: Jessica Bradford Discharge: Date of : 74 Report #: [id number] use her spinal cord stimulator at all times. 3. The patient will return to the office for her next available fill in 2 months as long as the COVID outbreak has subsided. 4. The patient is seen in collaboration with Dr. Karlo Celaya. <ELECTRONICALLY SIGNED> By: Jessica Bradford 01/24/20 0907 [id number] 1440 Jessica Bradford /nt
== END ==
LOC: TELEPC 06:52 → PAIN 06:52 → TELEPC 13:39
DX: M54.16 Radiculopathy, lumbar region (principal); E03.9 Hypothyroidism, unspecified; G80.9 Cerebral palsy, unspecified; F11.20 Opioid dependence, uncomplicated; Z46.2 Encounter for fitting and adjustment of other devices related to nervous system and special senses; Z88.5 Allergy status to narcotic agent; Z79.899 Other long term (current) drug therapy

== ENCOUNTER → 2020-04-08 | Outpatient (CLI) | payer OTHER ==
[~2020-04-08] VITALS: Ht 162.6 cm; Wt 99.3 kg
--- NOTE | ~2020-04-08 | HPC ---
[facility] [place] [address] PAIN MANAGEMENT CONSULTATION Name: ANYI ANDERSON Room #: REG TREVER Dolores#: [id number] Admission: 04/08/20 Attend Phys: Karlo Celaya MD Discharge: Date of : 74 Report #: [id number] THIS REPORT FOR: cc: Vijay Cervantes MD, Rene P. MD Morgan,Karlo Ashley MD ~ CC: Vijay Celaya DATE OF SERVICE: 04/08/2020 Followup visit for chronic lumbar radiculopathy, right L4-L5 and S1. The patient returns to pain clinic today depressed with the passing of her father 1 month ago, although he had been on hospice for many months prior to his passing. His came on fairly suddenly to the family and they are grieving. She has situational depression. Her mother is there of course to support her. She is here today because of her low back pain with right radicular symptoms. It radiates through the buttock and leg into the lower leg and foot. She has responded nicely to transforaminal epidural injections in the past. We have previously injected her at L5-S1. Her most recent injection at L4-L5 was more favorable and more long lasting. I have agreed to repeat the injection for her today. She also has pain medication that she takes when the pain is very severe. I think this helps with her mood as well. Living in pain all the time is hard for her, also suffering psychological pain. I have agreed to renew her hydrocodone 7.5/325 for the next month or two. She will take no more than 2-3 tablets a day. Her first prescription was for 60 tablets, the second for 90. That should carry her through to her next appointment. All other medications were reviewed and reconciled. They include Cymbalta for depression and for chronic pain, Topamax for seizure disorder and pain, clonazepam for spasticity and cyclobenzaprine for muscle spasm. PQRS: Positive for osteoarthritis of the hands and neck. BMI is 37.6. Blood pressure is 140/79, heart rate 136, respirations 18, O2 sat 100. She has tended towards tachycardia. A check later in the visit showed her heart rate to be down to 120 and slowing. Pain intensity is 6-7/10. She has not fallen in the last 3 months. She denies blood thinners or antihypertensives. She is on opioid agreement. Her risk assessment tool is low at 1 and suggests a low risk of addiction. She denies use of tobacco or alcohol. PHYSICAL EXAMINATION: VITAL SIGNS: As noted. GENERAL: She walks with antalgic gait. She has pain with straight leg raising [facility] [address] [place] [address] PAIN MANAGEMENT CONSULTATION Name: ANYI ANDERSON Jeff Room #: REG [facility] Dolores#: [id number] Admission: 04/08/20 Attend Phys: Karlo Celaya MD Discharge: Date of : 74 Report #: [id number] on the right, rather marked and reproduced down into the calf and foot. She complains of some numbness. She has spasticity and weakness. IMPRESSION: Lumbar radiculopathy in the right. PROCEDURE: Right L4-L5 transforaminal epidural injection under fluoroscopic guidance. DESCRIPTION OF PROCEDURE: After informed consent, she was taken to fluoroscopic suite, placed prone, skin prepped with ChloraPrep. Skin anesthetized over the L4-L5 interspace. A 20-gauge Tuohy epidural needle advanced in the epidural space to the right of midline using loss of resistance. There was no blood or CSF aspirated. Needle entered the neural foramina and dye was seen to spread anteriorly. It was then withdrawn slightly and followed by 3 mL of 0.5% lidocaine mixed with 80 mg of triamcinolone. She tolerated the procedure well and was observed for 45 minutes and discharged. Medications were sent electronically. Followup visit planned in 3 months. By: [id number] Karlo Celaya MD /nt
[2020-04-08 13:11] VITALS: BP 140/79
--- NOTE | 2020-04-08 13:29 | NUR ---
Pain Clinic Assessment: 1. History of Osteoarthritis: B/L HANDS NECK History of Rheumatoid Arthritis: Not Applicable 2. Height: 5 ft. 4 in. 162.6 cm. Weight: 219.0 lb. oz. 99.338 kg. Patient's BMI: 37.6 3. Vital Signs: BP: 140/79 Pulse: 136 Resp: 18 Temp: 02 Sat: 100 ECG Mon: 4. Pain Intensity: 7-8 5. Fall Risk: Dizziness: Y Needs help standing or walking: N Fallen in the last 3 months: N Fall risk comments: 6. Patient on Blood Thinner: None 7. History of Hypertension: Y 8. Opioid Therapy greater than 6 weeks: N Opiate Contract Signed: 9. Risk Assessment Tool Provided: low-1 10. Functional Assessment Tool: 11. Recreational Drug Use: Never Drug Type: Tobacco Use: Never Smoker Tobacco Type: Amount or Packs/day: How Many Years: Alcohol Use: No Frequency: Quant:
== END | disposition home or self-care (01) ==
LOC: PAIN 06:50
PROVIDERS: ATTEND Anesthesiology Pain Medicine
DX: M54.16 Radiculopathy, lumbar region (principal); G89.29 Other chronic pain; Z79.891 Long term (current) use of opiate analgesic

== ENCOUNTER → 2020-07-15 | Outpatient (CLI) | payer OTHER ==
[~2020-07-15] VITALS: Ht 162.6 cm; Wt 97.8 kg
[~2020-07-15] MED LIST changes: +GABAPENTIN100 MG PO
[2020-07-15 15:00] VITALS: BP 114/57
--- NOTE | 2020-07-15 15:10 | NUR ---
Pain Clinic Assessment: 1. History of Osteoarthritis: B/L HANDS NECK History of Rheumatoid Arthritis: Not Applicable 2. Height: 5 ft. 4 in. 162.6 cm. Weight: 215.6 lb. oz. 97.796 kg. Patient's BMI: 37.0 3. Vital Signs: BP: 114/57 Pulse: 131 Resp: 16 Temp: 02 Sat: 94 ECG Mon: 4. Pain Intensity: 9 5. Fall Risk: Dizziness: N Needs help standing or walking: Y Fallen in the last 3 months: N Fall risk comments: 6. Patient on Blood Thinner: None 7. History of Hypertension: Y 8. Opioid Therapy greater than 6 weeks: N Opiate Contract Signed: 9. Risk Assessment Tool Provided: low-1 10. Functional Assessment Tool: 11. Recreational Drug Use: Never Drug Type: Tobacco Use: Never Smoker Tobacco Type: Amount or Packs/day: How Many Years: Alcohol Use: No Frequency: Quant:
== END ==
LOC: PAIN 06:59
PROVIDERS: ATTEND Anesthesiology Pain Medicine
DX: M54.16 Radiculopathy, lumbar region (principal); G89.29 Other chronic pain; Z88.8 Allergy status to other drugs, medicaments and biological substances; Z79.899 Other long term (current) drug therapy

== ENCOUNTER → 2020-07-23 | Outpatient (CLI) | payer OTHER | LOC: CAT 14:21 | PROVIDERS: ATTEND Anesthesiology Pain Medicine | DX: M47.26 Other spondylosis with radiculopathy, lumbar region (principal); M48.061 Spinal stenosis, lumbar region without neurogenic claudication ==

== ENCOUNTER → 2020-08-08 | Outpatient (CLI) | payer OTHER ==
[~2020-08-08] VITALS: Ht 162.6 cm; Wt 99.2 kg
[~2020-08-08] MED LIST changes: +AMITIZA 24 MCG24 MCG PO; +CEFUROXIME500 MG PO; +MOVANTIK12.5 MG PO; +MS CONTIN15 MG PO
--- NOTE | 2020-08-08 11:35 | NUR ---
Pain Clinic Assessment: 1. History of Osteoarthritis: B/L HANDS NECK History of Rheumatoid Arthritis: Not Applicable 2. Height: 5 ft. 4 in. 162.6 cm. Weight: 218.8 lb. oz. 99.247 kg. Patient's BMI: 37.5 3. Vital Signs: BP: Pulse: 125 Resp: 18 Temp: 02 Sat: 93 ECG Mon: 4. Pain Intensity: 9.5 5. Fall Risk: Dizziness: N Needs help standing or walking: N Fallen in the last 3 months: N Fall risk comments: 6. Patient on Blood Thinner: None 7. History of Hypertension: Y 8. Opioid Therapy greater than 6 weeks: N Opiate Contract Signed: 9. Risk Assessment Tool Provided: low-1 10. Functional Assessment Tool: 11. Recreational Drug Use: Never Drug Type: Tobacco Use: Never Smoker Tobacco Type: Amount or Packs/day: How Many Years: Alcohol Use: No Frequency: Quant:
== END ==
LOC: PAIN 06:46
PROVIDERS: ATTEND Anesthesiology Pain Medicine
DX: M54.16 Radiculopathy, lumbar region (principal); G89.29 Other chronic pain; G80.9 Cerebral palsy, unspecified; M96.1 Postlaminectomy syndrome, not elsewhere classified; G47.00 Insomnia, unspecified; F41.8 Other specified anxiety disorders; Z88.8 Allergy status to other drugs, medicaments and biological substances; Z79.899 Other long term (current) drug therapy

== ENCOUNTER → 2020-08-19 | Outpatient (CLI) | payer OTHER ==
[~2020-08-19] VITALS: Ht 162.6 cm; Wt 101.2 kg
[2020-08-19 10:16] VITALS: BP 131/94
--- NOTE | 2020-08-19 10:49 | NUR ---
Pain Clinic Assessment: 1. History of Osteoarthritis: B/L HANDS NECK History of Rheumatoid Arthritis: Not Applicable 2. Height: 5 ft. 4 in. 162.6 cm. Weight: 223.2 lb. oz. 101.243 kg. Patient's BMI: 38.3 3. Vital Signs: BP: 131/94 Pulse: 126 Resp: 20 Temp: 02 Sat: 96 ECG Mon: 4. Pain Intensity: 2 5. Fall Risk: Dizziness: N Needs help standing or walking: N Fallen in the last 3 months: N Fall risk comments: 6. Patient on Blood Thinner: None 7. History of Hypertension: Y 8. Opioid Therapy greater than 6 weeks: N Opiate Contract Signed: 9. Risk Assessment Tool Provided: low-1 10. Functional Assessment Tool: 0 11. Recreational Drug Use: Never Drug Type: Tobacco Use: Never Smoker Tobacco Type: Amount or Packs/day: How Many Years: Alcohol Use: No Frequency: Quant:
== END ==
LOC: PAIN 06:56
PROVIDERS: ATTEND Anesthesiology Pain Medicine
DX: M54.16 Radiculopathy, lumbar region (principal); G89.29 Other chronic pain; G80.8 Other cerebral palsy; G47.00 Insomnia, unspecified; F32.9 Major depressive disorder, single episode, unspecified; F41.9 Anxiety disorder, unspecified; Z88.5 Allergy status to narcotic agent; Z79.891 Long term (current) use of opiate analgesic

== ENCOUNTER → 2020-09-26 | Outpatient (CLI) | payer OTHER ==
[~2020-09-26] MED LIST changes: +MORPHINE SULFAT15 MG PO; +NEURONTIN100 MG PO
--- NOTE | 2020-09-26 14:27 | HPC ---
[facility] [address] [place] [address] PAIN MANAGEMENT CONSULTATION Name: ANYI ANDERSON Room #: REG RAPHAELAshley Bernal#: [id number] Admission: 09/26/20 Attend Phys: Jessica Bradford Discharge: Date of : 74 Report #: [id number] THIS REPORT FOR: cc: Vijay Cervantes MD, Rene P. MD Hocker, Amanda CNS ~ DATE OF SERVICE: 09/26/2020 CHIEF COMPLAINT: Chronic low back pain with radiculopathy. HISTORY OF PRESENT ILLNESS: This is a pleasant 49-year-old female who I am speaking with for a telemedicine appointment speaking with her from 12:30-12:52 via [employer] that they have consented to. The patient states that "she is pain free." She states that the morphine is helping very well. She takes it twice a day and is having no pain at all. She reports that she has been titrating up her gabapentin taking 200 mg twice a day and was about to start taking 3 tablets as directed by Dr. aKrlo Celaya. She reports that her pain is in her right leg and buttock. She is no longer using her spinal cord stimulator because the morphine is working so well. She also states that they worked for a significant amount of time with the [employer] and the spinal cord stimulator was not helping her right leg. She has quit using it and now finds the morphine working so well that she does not miss her spinal cord stimulator. Today, she would like refills of her medications. She does inform me that she does not need any Movantik since insurance did not approve that medication and she has been utilizing stool softener, Senokot, and occasional MiraLax if she is having any constipation issues. ALLERGIES: CODEINE, ADHESIVE TAPE, AND STRAWBERRIES. CURRENT LIST OF MEDICATIONS: Gabapentin 200 mg b.i.d., morphine sulfate 15 mg t.i.d., duloxetine, milk thistle, Flexeril, losartan, meclizine, promethazine, Katie, Cyclafem, levothyroxine, clonazepam, Frova, Topamax, Protonix, and Depakote. According to the prescription monitoring system, the patient is filling appropriately for her medications, filling them in a timely fashion. Her morphine milliequivalent is 30 MMEs per day. PHYSICAL EXAMINATION: This is a review of systems due to a telemedicine appointment. The patient is alert and orientated on her FaceTime appointment today. She is answering my questions appropriately. She is wearing a C-collar on her neck for comfort as she does periodically per her report. She is able to ambulate in her house with an antalgic gait. PQRS: 1. We deferred height, weight, or vital signs today due to a Telemed [address] [address] PAIN MANAGEMENT CONSULTATION Name: MONICAANYI R [facility] [id number] Admission: 09/26/20 Attend Phys: Jessica Bradford Discharge: Date of : 74 Report #: [id number] appointment. She has a history of osteoarthritis in her hands, neck, and lower back. She denies any rheumatoid arthritis. Pain score of 0/10. Blood thinners: She denies. Functional assessment is 0/70. 2. Hypertension. She is taking medications for. She is not a smoker and does not take recreational drugs or alcohol. Her risk assessment is low. IMPRESSION: 1. Severe low back pain with radiculopathy. 2. Cerebral palsy with spasticity. 3. Failed spinal cord stimulator. 4. Chronic depression and anxiety. 5. Management of high risk medications under written opioid agreement. PLAN: 1. We discussed treatment options with the patient today. She finds the morphine sulfate very beneficial in controlling her pain, stating she is pain free currently and feels wonderful. She is able to do things around the house without pain, though she does rest and finds that beneficial as well. Today, we will have Dr. Karlo Celaya who is collaborating care with me send MS Contin 15 mg, #60 to be released on 10/03/2020, 10/31/2020, and 11/28/2020 to her local pharmacy. 2. The patient was trying to titrate her gabapentin up to 300 mg twice a day. I explained to her since she is having no pain and currently taking 400 mg a day to stay at that dose. We will increase it in the future if we need to, but currently stay at 200 b.i.d. Scripts will be sent electronically for #120 pills with 6 refills. 3. The patient and mother discussed the COVID vaccine with me. They are looking to sign up for the vaccine in [facility], which they live in. I encouraged them to try to go to the [facility] website and see if they are able to sign up there. Otherwise, continue to keep trying in [facility] where it will eventually be available to them. 4. The patient is seen today in collaboration with Dr. Karlo Celaya. We will see her in the clinic, hopefully in 3 months' time. <ELECTRONICALLY SIGNED> By: Jessica Bradford 09/26/20 [id number] [id number] Jessica lorenz
== END ==
LOC: TELEPC 06:49 → PAIN 10:49 → TELEPC 10:54
PROVIDERS: ATTEND Clinical Nurse Specialist Adult Health
DX: M54.16 Radiculopathy, lumbar region (principal); G89.29 Other chronic pain; G80.1 Spastic diplegic cerebral palsy; F41.8 Other specified anxiety disorders; F11.20 Opioid dependence, uncomplicated; Z88.8 Allergy status to other drugs, medicaments and biological substances; Z79.899 Other long term (current) drug therapy

== ENCOUNTER → 2020-12-26 | Outpatient (CLI) | payer OTHER ==
[~2020-12-26] VITALS: Ht 162.6 cm; Wt 98.4 kg
--- NOTE | 2020-12-26 12:51 | NUR ---
Pain Clinic Assessment: 1. History of Osteoarthritis: B/L HANDS NECK History of Rheumatoid Arthritis: Not Applicable 2. Height: 5 ft. 4 in. 162.6 cm. Weight: 217.0 lb. oz. 98.431 kg. Patient's BMI: 37.2 3. Vital Signs: BP: Pulse: 129 Resp: 20 Temp: 02 Sat: 96 ECG Mon: 4. Pain Intensity: 0 5. Fall Risk: Dizziness: N Needs help standing or walking: N Fallen in the last 3 months: N Fall risk comments: 6. Patient on Blood Thinner: None 7. History of Hypertension: Y 8. Opioid Therapy greater than 6 weeks: Y Opiate Contract Signed: 12/26/20 9. Risk Assessment Tool Provided: low-1 10. Functional Assessment Tool: 11. Recreational Drug Use: Never Drug Type: Tobacco Use: Never Smoker Tobacco Type: Amount or Packs/day: How Many Years: Alcohol Use: No Frequency: Quant:
== END ==
LOC: PAIN 10:11
PROVIDERS: ATTEND Clinical Nurse Specialist Adult Health
DX: M54.16 Radiculopathy, lumbar region (principal); Z79.891 Long term (current) use of opiate analgesic; Z79.899 Other long term (current) drug therapy; Z88.5 Allergy status to narcotic agent; Z88.8 Allergy status to other drugs, medicaments and biological substances; M19.042 Primary osteoarthritis, left hand; M19.041 Primary osteoarthritis, right hand

== ENCOUNTER → 2021-04-17 | Outpatient (CLI) | payer OTHER ==
[~2021-04-17] VITALS: Ht 162.6 cm; Wt 90.5 kg
[~2021-04-17] MED LIST changes: +GABAPENTIN 100100 MG PO; +LACTULOSE10 GM/15 M PO; +MOVANTIK25 MG PO
--- NOTE | 2021-04-17 11:17 | NUR ---
Pain Clinic Assessment: 1. History of Osteoarthritis: B/L HANDS NECK History of Rheumatoid Arthritis: Not Applicable 2. Height: 5 ft. 4 in. 162.6 cm. Weight: 199.6 lb. oz. 90.538 kg. Patient's BMI: 34.2 3. Vital Signs: BP: Pulse: 124 Resp: 18 Temp: 02 Sat: 95 ECG Mon: 4. Pain Intensity: 2 5. Fall Risk: Dizziness: N Needs help standing or walking: N Fallen in the last 3 months: N Fall risk comments: 6. Patient on Blood Thinner: None 7. History of Hypertension: Y 8. Opioid Therapy greater than 6 weeks: Y Opiate Contract Signed: 12/26/20 9. Risk Assessment Tool Provided: low-1 10. Functional Assessment Tool: 11. Recreational Drug Use: Never Drug Type: Tobacco Use: Never Smoker Tobacco Type: Amount or Packs/day: How Many Years: Alcohol Use: No Frequency: Quant:
== END ==
LOC: PAIN 04-14 07:06
PROVIDERS: ATTEND Clinical Nurse Specialist Adult Health
DX: M54.16 Radiculopathy, lumbar region (principal); G80.9 Cerebral palsy, unspecified; K59.03 Drug induced constipation; T40.2X5A Adverse effect of other opioids, initial encounter; F32.9 Major depressive disorder, single episode, unspecified; F41.9 Anxiety disorder, unspecified; Z79.891 Long term (current) use of opiate analgesic; Z79.899 Other long term (current) drug therapy; Y92.9 Unspecified place or not applicable

== ENCOUNTER → 2021-07-24 | Outpatient (CLI) | payer OTHER ==
[~2021-07-24] VITALS: Ht 162.6 cm; Wt 82.3 kg
[2021-07-24 09:35] VITALS: BP 100/77
--- NOTE | 2021-07-24 10:12 | NUR ---
Pain Clinic Assessment: 1. History of Osteoarthritis: B/L HANDS NECK History of Rheumatoid Arthritis: Not Applicable 2. Height: 5 ft. 4 in. 162.6 cm. Weight: 181.4 lb. oz. 82.283 kg. Patient's BMI: 31.1 3. Vital Signs: BP: 100/77 Pulse: 115 Resp: 16 Temp: 02 Sat: 98 ECG Mon: 4. Pain Intensity: 2 5. Fall Risk: Dizziness: Y Needs help standing or walking: N Fallen in the last 3 months: N Fall risk comments: 6. Patient on Blood Thinner: None 7. History of Hypertension: Y 8. Opioid Therapy greater than 6 weeks: Y Opiate Contract Signed: 12/26/20 9. Risk Assessment Tool Provided: low-1 10. Functional Assessment Tool: 11. Recreational Drug Use: Never Drug Type: Tobacco Use: Never Smoker Tobacco Type: Amount or Packs/day: How Many Years: Alcohol Use: No Frequency: Quant:
== END ==
LOC: PAIN 09:19
PROVIDERS: ATTEND Clinical Nurse Specialist Adult Health
DX: G89.29 Other chronic pain (principal); M54.50 Low back pain, unspecified; M54.16 Radiculopathy, lumbar region; R00.0 Tachycardia, unspecified; G80.8 Other cerebral palsy; F41.8 Other specified anxiety disorders; K59.03 Drug induced constipation; M96.1 Postlaminectomy syndrome, not elsewhere classified; Z88.8 Allergy status to other drugs, medicaments and biological substances; Z79.899 Other long term (current) drug therapy

== ENCOUNTER → 2021-10-16 | Outpatient (CLI) | payer OTHER ==
[~2021-10-16] VITALS: Ht 162.6 cm; Wt 84.0 kg
[~2021-10-16] MED LIST changes: +MIRTAZAPINE7.5 MG PO
[2021-10-16 14:02] VITALS: BP 106/60
--- NOTE | 2021-10-16 14:19 | NUR ---
Pain Clinic Assessment: 1. History of Osteoarthritis: B/L HANDS NECK History of Rheumatoid Arthritis: Not Applicable 2. Height: 5 ft. 4 in. 162.6 cm. Weight: 185.2 lb. oz. 84.006 kg. Patient's BMI: 31.8 3. Vital Signs: BP: 106/60 Pulse: 122 Resp: 20 Temp: 02 Sat: 97 ECG Mon: 4. Pain Intensity: 6 TO 8 5. Fall Risk: Dizziness: Y Needs help standing or walking: N Fallen in the last 3 months: N Fall risk comments: 6. Patient on Blood Thinner: None 7. History of Hypertension: Y 8. Opioid Therapy greater than 6 weeks: Y Opiate Contract Signed: 12/26/20 9. Risk Assessment Tool Provided: low-1 10. Functional Assessment Tool: 11. Recreational Drug Use: Never Drug Type: Tobacco Use: Never Smoker Tobacco Type: Amount or Packs/day: How Many Years: Alcohol Use: No Frequency: Quant:
== END ==
LOC: PAIN 12:05
PROVIDERS: ATTEND Anesthesiology Pain Medicine
DX: G89.29 Other chronic pain (principal); M19.042 Primary osteoarthritis, left hand; M19.041 Primary osteoarthritis, right hand; I10 Essential (primary) hypertension; M54.16 Radiculopathy, lumbar region; F41.9 Anxiety disorder, unspecified; F32.A Depression, unspecified; Z79.899 Other long term (current) drug therapy; Z88.8 Allergy status to other drugs, medicaments and biological substances; Z68.31 Body mass index [BMI] 31.0-31.9, adult